=== PATIENT | male | born 2000 | race American Indian/Alaskan Native ===

== ENCOUNTER 2024-07-22 22:41 | Emergency (ER) | payer SELFPAY ==
[2024-07-22 23:47] VITALS: BP 115/78; PULSE 66
[2024-07-22] MEDS: Ketorolac 30 MG/ML SDV IM ONE (23:48)
[2024-07-22] MEDS: Clindamycin HCl 150 MG Cap PO ONE (23:48)
== END 2024-07-22 23:53 | disposition home or self-care (01) ==
LOC: DL.ED 22:41
DX: K04.7 Periapical abscess without sinus (principal); K05.10 Chronic gingivitis, plaque induced; Z86.16 Personal history of COVID-19
CPT/HCPCS: 99282; A9270

== ENCOUNTER 2024-11-02 14:28 | Emergency (ER) | payer MEDICAID ==
[2024-11-02] MEDS ORDERED: Bacitracin Oint 1 GM U/D Packet TOP ONE (14:54)
[2024-11-02 15:07] VITALS: BP 118/70; PULSE 88
== END 2024-11-02 15:05 | disposition home or self-care (01) ==
LOC: DL.ED 14:28
DX: S41.112A Laceration without foreign body of left upper arm, initial encounter (principal); F17.210 Nicotine dependence, cigarettes, uncomplicated; Z79.899 Other long term (current) drug therapy; W22.8XXA Striking against or struck by other objects, initial encounter
CPT/HCPCS: 99284

== ENCOUNTER 2025-01-05 02:07 | Emergency (ER) | payer MEDICAID ==
[2025-01-05 02:43] VITALS: BP 122/69; PULSE 88
[2025-01-05] MEDS ORDERED: Sodium Chloride 0.9% 10 ML Syringe FLUSH PRN (02:44)
[2025-01-05] MEDS ORDERED: Aspirin 81 MG Tab.Chew PO ONE (02:44)
== END 2025-01-05 02:59 | disposition left against medical advice (07) ==
LOC: DL.ED 02:07
DX: R07.9 Chest pain, unspecified (principal); F17.210 Nicotine dependence, cigarettes, uncomplicated; Z79.899 Other long term (current) drug therapy; Z86.16 Personal history of COVID-19
CPT/HCPCS: 93005; 93010; 99284

== ENCOUNTER 2025-04-01 23:21 | Emergency (ER) | payer MEDICAID ==
[2025-04-01 23:52] VITALS: BP 109/78; PULSE 61
== END 2025-04-01 23:49 ==
LOC: DL.ED 23:21
DX: Z02.89 Encounter for other administrative examinations (principal); Z86.16 Personal history of COVID-19
CPT/HCPCS: 99282; 99284